=== PATIENT | female | born 1940 | race Caucasian/White ===

== ENCOUNTER 2017-08-30 19:45 | Inpatient (IN) | payer MEDICARE, OTHER ==
[2017-08-30] MEDS ORDERED: Albuterol/Ipratropium 3.0-0.5 MG/3 ML Neb Soln ONE (19:46)
[2017-08-30] MEDS ORDERED: Albuterol/Ipratropium 3.0-0.5 MG/3 ML Neb Soln NEB ONE (19:55)
--- NOTE | 2017-08-30 20:19 | EDM.PDOC ---
ED HPI GENERAL MEDICAL PROBLEM - General Chief Complaint: Respiratory Problem Stated Complaint: SOB Time Seen by Provider: 08/30/17 19:50 Source of Information: Reports: Patient, EMS, Family History Limitations: Reports: No Limitations - History of Present Illness INITIAL COMMENTS - FREE TEXT/NARRATIVE: Criselda is a 77 year old female with PMH of COPD, hypertension, hyperlipidemia, who presents to the ED via EMS with c/o difficultly breathing. She reports that around 5 pm she started feeling more and more short of breath. She reports she did do a nebulizer at 1745 without relief. Initially her daughter was going to bring her, but then she started to "panic more" and got more short of breath so EMS was called. She appears in respiratory distress with respirations > 40 at time of presentation. She reports she has had a productive cough occasionally the past few days, but otherwise has been feeling well. Does report she has extensive smoking history and she did have a couple cigarettes today. Denies any fever, chills, chest pain, dizziness, sinus congestion, confusion, abdominal pain, N/V/D, urinary symptoms. She does report she has felt more fatigued and had a decreased appetite the past few days. Family reports that she has been laying around all day not feeling well. Onset: Today Onset Date: 08/30/17 Onset Time: 17:00 Duration: Getting Worse Location: Reports: Chest Associated Symptoms: Reports: Cough, cough w sputum, Loss of Appetite, Shortness of Breath, Weakness. Denies: Confusion, Chest Pain, Diaphoresis, Fever/Chills, Headaches, Malaise, Nausea/Vomiting, Rash, Seizure, Syncope Treatments GENERAL PURCHASING AGENT: Reports: Other Medication(s) (nebulizers, xanax) - Related Data Allergies Allergy/AdvReac Type Severity Reaction Status Date / Time ciprofloxacin [From Cipro] Allergy Hives Verified 08/30/17 19:09 Sulfa (Sulfonamide Allergy Hives Verified 08/30/17 19:09 Antibiotics) Home Meds: Home Meds ALPRAZolam [Xanax] 0.5 mg PO TID PRN 06/06/13 [History] Aspirin 325 mg PO DAILY 06/06/13 [History] Simvastatin [Zocor] 40 mg PO DAILY 06/06/13 [History] amLODIPine [Norvasc] 5 mg PO DAILY 06/06/13 [History] Fluticasone/Salmeterol [Advair Diskus 250-50] 1 puff INH BID 04/08/16 [History] Albuterol [Ventolin HFA] 1 puff INH Q4H PRN 08/30/17 [History] Albuterol/Ipratropium [DuoNeb 3.0-0.5 MG/3 ML] 1 vial INH Q4H PRN 08/30/17 [ History] Calcium Carb & Citrate/Vit D3 [Calcium + D3 ER Tablet] 1 tab PO DAILY 08/30/17 [ History] Loratadine 10 mg PO DAILY PRN 08/30/17 [History] traMADol HCl [Tramadol HCl] 50 mg PO Q6H PRN 08/30/17 [History] Past Medical History HEENT History: Reports: Allergic Rhinitis, Sinusitis Cardiovascular History: Reports: High Cholesterol, Hypertension, Other (See Below) Other Cardiovascular History: carotid bruit Respiratory History: Reports: Bronchitis, Recurrent, COPD, SOB Psychiatric History: Reports: Anxiety - Past Surgical History HEENT Surgical History: Reports: Other (See Below) Social & Family History - Family History Family Medical History: Noncontributory ED ROS GENERAL - Review of Systems Review Of Systems: See Below Constitutional: Reports: Weakness, Fatigue, Decreased Appetite. Denies: Fever, Chills HEENT: Denies: Ear Pain, Rhinitis, Sinus Problem, Throat Pain, Vertigo, Vision Change Respiratory: Reports: Shortness of Breath, Wheezing, Cough, Sputum. Denies: Pleuritic Chest Pain, Hemoptysis Cardiovascular: Reports: Dyspnea on Exertion. Denies: Chest Pain, Blood Pressure Problem, Edema, Lightheadedness, Orthopnea, Palpitations, Syncope Endocrine: Reports: Fatigue GI/Abdominal: Reports: Decreased Appetite. Denies: Abdominal Pain, Constipation , Diarrhea, Nausea, Vomiting : Denies: Dysuria, Frequency, Urgency Musculoskeletal: Reports: No Symptoms Skin: Reports: No Symptoms Neurological: Reports: Weakness. Denies: Confusion, Dizziness, Headache, Numbness, Syncope, Tingling Psychiatric: Reports: Anxiety Hematologic/Lymphatic: Reports: No Symptoms Immunologic: Reports: Seasonal Allergy ED EXAM, GENERAL - Physical Exam Exam: See Below Exam Limited By: Respiratory Distress General Appearance: Alert, WD/WN, Moderate Distress Eye Exam: Bilateral Eye: EOMI, PERRL Nose: Normal Inspection, Normal Mucosa, No Blood. No: Nasal Flaring Throat/Mouth: Normal Inspection, Normal Lips, Normal Teeth, Normal Gums, Normal Oropharynx, Normal Voice, No Airway Compromise Head: Atraumatic, Normocephalic Neck: Normal Inspection, Supple, Non-Tender, Full Range of Motion Respiratory/Chest: No Accessory Muscle Use, Respiratory Distress, Decreased Breath Sounds, Wheezing, Accessory Muscle Use, Prolonged Expiration. No: Crackles, Rales, Rhonchi, Stridor, Retractions Cardiovascular: Normal Peripheral Pulses, No Edema, No Murmur, Tachycardia GI/Abdominal: Normal Bowel Sounds, Soft, Non-Tender, No Organomegaly, No Distention, No Abnormal Bruit, No Mass Extremities: Normal Inspection, Normal Range of Motion, Non-Tender, Normal Capillary Refill, No Pedal Edema Neurological: Alert, Oriented, CN II-XII Intact, Normal Cognition, Normal Gait, Normal Reflexes, No Motor/Sensory Deficits Psychiatric: Anxious Skin Exam: Warm, Dry, Intact, Normal Color, No Rash Lymphatic: No Adenopathy Course - Vital Signs Last Recorded V/S: Last Vital Signs Temp 96.6 F 08/31/17 03:52 Pulse 81 08/31/17 03:52 Resp 25 H 08/31/17 03:52 BP 118/50 L 08/31/17 03:52 Pulse Ox 98 08/31/17 03:52 - Orders/Labs/Meds Orders: Active Orders 24 hr Category Date Time Status Chest 2V [CR] Stat Exams 08/30/17 19:45 Taken Medication Orders Acetaminophen (Tylenol) 650 mg PO Q4H PRN PRN Reason: Pain (Mild 1-3)/fever Albuterol/Ipratropium (Duoneb 3.0-0.5 Mg/3 Ml) 3 ml NEB QIDRT [facility] Albuterol/Ipratropium (Duoneb 3.0-0.5 Mg/3 Ml) 3 ml NEB Q4H PRN PRN Reason: Dyspnea Last Admin: 08/30/17 22:47 Dose: 3 ml Alprazolam (Xanax) 0.5 mg PO TID PRN PRN Reason: Anxiety Amlodipine Besylate (Norvasc) 5 mg PO DAILY [facility] Aspirin (Aspirin) 325 mg PO DAILY [facility] Calcium Carbonate (Calcium Carbonate/Vitamin D 1250 Mg-200 Unit) 1 tab PO DAILY [facility] Ceftriaxone Sodium (Rocephin) 1 gm IVPUSH Q24H [facility] Enoxaparin Sodium (Lovenox) 40 mg SUBCUT Q24H [facility] Last Admin: 08/30/17 21:44 Dose: 40 mg Azithromycin 500 mg/ Sodium (Chloride) 250 mls @ 250 mls/hr IV Q24H [facility] Loratadine (Claritin) 10 mg PO DAILY PRN PRN Reason: Allergies Magnesium Hydroxide (Milk Of Magnesia) 30 ml PO Q12H PRN PRN Reason: Constipation Methylprednisolone Sodium Succinate (Solu-Medrol) 62.5 mg IVPUSH Q12H [facility] Last Admin: 08/30/17 21:43 Dose: 62.5 mg Mometasone Furoate/Formoterol Fumar (Dulera 200-5 Mcg) 2 puff IH BID [facility] Simvastatin (Zocor) 40 mg PO DAILY [facility] Temazepam (Restoril) 15 mg PO BEDTIME PRN PRN Reason: Sleep Last Admin: 08/30/17 22:45 Dose: 15 mg Tramadol HCl (Ultram) 50 mg PO Q6H PRN PRN Reason: Pain Labs: Laboratory Tests 08/30/17 08/30/17 08/30/17 Range/Units 19:57 19:57 19:57 WBC 16.9 H (5.0-10.0) 10^3/uL RBC 4.64 (4.00-5.50) 10^6/uL Hgb 14.5 (12.0-16.0) g/dL Hct 44.2 (37.0-47.0) % MCV 95.3 H (82.0-94.0) fL MCH 31.3 (27.0-32.0) pg MCHC 32.8 L (33.0-38.0) g/dL RDW Coeff of Ro 14.6 (11.0-15.0) % Plt Count 327 (150-400) 10^3/uL Add Manual Diff Yes Neutrophils % (Manual) 93 H (35-85) % Band Neutrophils % 2 (0-5) % Lymphocytes % (Manual) 4 L (21-55) % Monocytes % (Manual) 1 L (2-12) % Absolute Neutrophils 16.06 H (1.80-7.00) 10^3/uL Lymphocytes # (Manual) 0.68 L (1.00-4.80) 10^3/uL Monocytes # (Manual) 0.17 (0.00-0.80) 10^3/uL D-Dimer, Quantitative 0.86 H (0.00-0.50) Sodium 138 (136-145) mEq/L Potassium 4.9 (3.5-5.0) mEq/L Chloride 100 (98-106) mEq/L Carbon Dioxide 30 (21-32) mmol/L BUN 15 (7-18) mg/dL Creatinine 0.8 (0.6-1.0) mg/dL Est Cr Clr Drug Dosing 42.30 mL/min Estimated GFR (MDRD) > 60 (>=60) mL/min Glucose 129 H (75-99) mg/dL Calcium 8.8 (8.4-10.1) mg/dL Total Bilirubin 0.3 (0.0-1.0) mg/dL AST 25 (15-37) U/L ALT 31 (12-78) U/L Alkaline Phosphatase 81 (46-116) U/L Lactate Dehydrogenase 210 H (100-190) U/L Creatine Kinase 120 (21-215) U/L Troponin I < 0.017 (0.00-0.06) ng/mL C-Reactive Protein 0.3 (0.2-0.8) mg/dL NT-Pro-B Natriuret Pep 329 (0-1000) pg/mL Total Protein 7.4 (6.4-8.2) g/dL Albumin 3.4 (3.4-5.0) g/dL Meds: Medications Generic Name Dose Route Start Last Admin Trade Name Freq PRN Reason Stop Dose Admin Acetaminophen 650 mg 08/30/17 21:10 Tylenol PO Q4H PRN Pain (Mild 1-3)/fever Albuterol/Ipratropium 3 ml 08/31/17 08:00 Duoneb 3.0-0.5 Mg/3 Ml NEB QIDRT [facility] Albuterol/Ipratropium 3 ml 08/30/17 21:10 08/30/17 22:47 Duoneb 3.0-0.5 Mg/3 Ml NEB 3 ml Q4H PRN Administration Dyspnea Alprazolam 0.5 mg 08/30/17 21:10 Xanax PO TID PRN Anxiety Amlodipine Besylate 5 mg 08/31/17 08:00 Norvasc PO DAILY [facility] Aspirin 325 mg 08/31/17 08:00 Aspirin PO DAILY [facility] Calcium Carbonate 1 tab 08/31/17 08:00 Calcium Carbonate/Vitamin D 1250 Mg-200 Unit PO DAILY [facility] Ceftriaxone Sodium 1 gm 08/31/17 07:30 Rocephin IVPUSH Q24H [facility] Enoxaparin Sodium 40 mg 08/30/17 21:00 08/30/17 21:44 Lovenox SUBCUT 40 mg Q24H [facility] Administration Azithromycin 500 mg/ Sodium 250 mls @ 250 mls/hr 08/31/17 07:30 Chloride IV Q24H [facility] Loratadine 10 mg 08/30/17 21:10 Claritin PO DAILY PRN Allergies Magnesium Hydroxide 30 ml 08/30/17 21:10 Milk Of Magnesia PO Q12H PRN Constipation Methylprednisolone Sodium Succinate 62.5 mg 08/30/17 21:00 08/30/17 21:43 Solu-Medrol IVPUSH 62.5 mg Q12H [facility] Administration Mometasone Furoate/Formoterol Fumar 2 puff 08/31/17 08:00 Dulera 200-5 Mcg IH BID [facility] Simvastatin 40 mg 08/31/17 08:00 Zocor PO DAILY [facility] Temazepam 15 mg 08/30/17 21:10 08/30/17 22:45 Restoril PO 15 mg BEDTIME PRN Administration Sleep Tramadol HCl 50 mg 08/30/17 21:10 Ultram PO Q6H PRN Pain Discontinued Medications Generic Name Dose Route Start Last Admin Trade Name Freq PRN Reason Stop Dose Admin Albuterol/Ipratropium Confirm 08/30/17 19:46 08/30/17 20:09 Duoneb 3.0-0.5 Mg/3 Ml Administered 08/30/17 19:47 Not Given Dose 3 ml .ROUTE .STK-MED ONE Albuterol/Ipratropium 3 ml 08/30/17 19:55 08/30/17 19:55 Duoneb 3.0-0.5 Mg/3 Ml NEB 08/30/17 19:56 3 ml ONETIME ONE Administration Levofloxacin/Dextrose 500 mg/ 100 mls @ 100 mls/hr 08/30/17 21:00 08/30/17 21 :43 Premix IV 100 mls/hr Q24H [facility] Administration - Re-Assessments/Exams Free Text/Narrative Re-Assessment/Exam: Discussed labs, EKG, and CXR findings with patient and family. Patient is requiring oxygen to maintain O2 sat > 88%. WBC elevated to 16.9. D-Dimer slightly elevated to 0.86, will hold off on chest CTA at this time and reassess with Dr. Hall in am. All other labs stable. I do not see obvious infiltrate on CXR, awaiting final radiology report. We will admit for acute COPD exacerbation. IV Rocephin and azithromycin. IV solumedrol and Duonebs. Continue to monitor O2 sats overnight. Patient and family agreeable to plan. CXR shows COPD, no infiltrates, pleural effusions, or pulmonary edema. Departure - Departure Time of Disposition: 20:40 Disposition: Admitted As Inpatient 66 Condition: Fair Clinical Impression: COPD exacerbation, Respiratory disease - Discharge Information - Problem List & Annotations (1) COPD with acute exacerbation SNOMED Code(s): 223431707 Code(s): J44.1 - CHRONIC OBSTRUCTIVE PULMONARY DISEASE W (ACUTE) EXACERBATION Status: Acute Current Visit: Yes (2) Hypertension SNOMED Code(s): 89759179 Code(s): I10 - ESSENTIAL (PRIMARY) HYPERTENSION Status: Acute Current Visit: Yes Qualifiers: Hypertension type: essential hypertension Qualified Code(s): I10 - Essential (primary) hypertension (3) Anxiety SNOMED Code(s): 44552171 Code(s): F41.9 - ANXIETY DISORDER, UNSPECIFIED Status: Chronic Current Visit: Yes - Problem List Review Problem List Initiated/Reviewed/Updated: Yes - My Orders Last 24 Hours: My Active Orders 08/30/17 19:45 Chest 2V [CR] Stat - Assessment/Plan Admission H&P: Please use this note as an admission H&P Last 24 Hours: My Active Orders 08/30/17 19:45 Chest 2V [CR] Stat Assessment:: COPD with acute exacerbation Plan: Admit to acute with telemetry to Dr. Hall IV antibiotics, steroids, Duonebs
[2017-08-30 20:22] LABS: CHLORIDE,CL 100 mEq/L (98-106); SODIUM,NA 138 mEq/L (136-145)
[2017-08-30] MEDS ORDERED: Enoxaparin 40 MG/0.4 ML Syringe SUBCUT SCH (21:00)
[2017-08-30] MEDS ORDERED: methylPREDNISolone Sodium Succinate 125 MG/2 ML SDV IVPUSH SCH (21:00)
[2017-08-30] MEDS ORDERED: Levofloxacin/Dextrose 5%-Water 500 MG in Premix Bag 1 BAG IV SCH (21:00)
[2017-08-30] MEDS ORDERED: Acetaminophen 325 MG Tab PO PRN (21:10)
[2017-08-30] MEDS ORDERED: ALPRAZolam 0.25 MG Tab PO PRN (21:10)
[2017-08-30] MEDS ORDERED: Temazepam 15 MG Cap PO PRN (21:10)
[2017-08-30] MEDS ORDERED: Albuterol/Ipratropium 3.0-0.5 MG/3 ML Neb Soln NEB PRN (21:10)
[2017-08-30] MEDS ORDERED: traMADol 50 MG Tab PO PRN (21:10)
[2017-08-30] MEDS ORDERED: Magnesium Hydroxide 400 MG/5 ML Susp 30 ML Cup PO PRN (21:10)
[2017-08-30] MEDS ORDERED: Loratadine 10 MG Tab PO PRN (21:10)
[2017-08-31 07:35] LABS: CHLORIDE,CL 101 mEq/L (98-106); SODIUM,NA 138 mEq/L (136-145)
[2017-08-31] MEDS: Albuterol/Ipratropium 3.0-0.5 MG/3 ML Neb Soln NEB SCH ×2 (07:47→11:40)
[2017-08-31] MEDS ORDERED: amLODIPine 2.5 MG Tab PO SCH (08:00)
[2017-08-31] MEDS ORDERED: Formoterol/Mometasone 200-5 MCG 8.8 GM Inhaler IH SCH (08:00)
[2017-08-31] MEDS ORDERED: Aspirin 325 MG Tab PO SCH (08:00)
[2017-08-31] MEDS ORDERED: Simvastatin 40 MG Tab PO SCH (08:00)
[2017-08-31] MEDS ORDERED: Calcium Carbonate/Vitamin D3 1250 MG-200 Unit Tab PO SCH (08:00)
[2017-08-31] MEDS ORDERED: cefTRIAXone 1 GM Vial IVPUSH SCH ×2 (08:00→09:00)
[2017-08-31] MEDS ORDERED: methylPREDNISolone Sodium Succinate 125 MG/2 ML SDV IVPUSH SCH (09:00)
[2017-08-31] MEDS ORDERED: Azithromycin 500 MG in Sodium Chloride 0.9% 250 ML IV SCH (09:00)
--- NOTE | 2017-08-31 09:21 | PCM.DCSUM1 ---
Discharge Summary - Hospital Course HPI Initial Comments: Criselda is a 77 year old female who was admitted to the hospital 08/30/2017 with COPD exacerbation. She presented to the ED in acute respiratory distress with > 40 breaths per minute. O2 sats were initially in the low 80s. CXR was negative for infiltrates. WBC was elevated to 16.9. Patient was admitted acute. She drastically improved overnight. At time of presentation she had audible wheezing throughout all lung amado. She was started on IV antibiotics, steroids , and nebulizers. On the morning following admission, patient reported she was feeling much better. She was no longer short of breath. She wished to discharge home. Her lung sounds were clear, but diminished. She has been afebrile. WBC improved to 11.1. D-dimer was elevated to 0.86. CRP 4.8. Patient will be discharged home on doxycycline, prednisone, and duonebs. She will also be discharged home on nicotine patches. She reports she wishes to quit smoking. Assessment for home O2 was completed and patient requiring oxygen for discharge. She is not able to maintain oxygen saturations > 88% on RA with activity given her significant COPD. She is advised to follow up with Cheryl OWENS in 5 days for hospital recheck. - Discharge Data Discharge Date: 08/31/17 Discharge Disposition: Home, Self-Care 01 Condition: Poor - Discharge Diagnosis/Problem(s) (1) COPD with acute exacerbation SNOMED Code(s): 612904944 ICD Code: J44.1 - CHRONIC OBSTRUCTIVE PULMONARY DISEASE W (ACUTE) EXACERBATION Status: Acute (2) Hypertension SNOMED Code(s): 78598009 ICD Code: I10 - ESSENTIAL (PRIMARY) HYPERTENSION Status: Acute Qualifiers: Hypertension type: essential hypertension Qualified Code(s): I10 - Essential (primary) hypertension (3) Anxiety SNOMED Code(s): 30458473 ICD Code: F41.9 - ANXIETY DISORDER, UNSPECIFIED Status: Chronic - Patient Instructions Diet: Usual Diet as Tolerated Activity: As Tolerated Notify Provider of: Fever, Increased Pain, Swelling and Redness, Drainage, Nausea and/or Vomiting - Discharge Plan Prescriptions/Med Rec: Albuterol/Ipratropium [DuoNeb 3.0-0.5 MG/3 ML] 1 vial INH Q4H PRN #30 neb PRN Reason: Dyspnea Doxycycline [Vibramycin] 100 mg PO DAILY 7 Days #7 tab Nicotine [Habitrol] 14 mg TRDERM Q24H #30 patch predniSONE [Prednisone] 40 mg PO DAILY 5 Days #10 tablet Home Medications: Home Meds ALPRAZolam [Xanax] 0.5 mg PO TID PRN 06/06/13 [History] Aspirin 325 mg PO DAILY 06/06/13 [History] Simvastatin [Zocor] 40 mg PO DAILY 06/06/13 [History] amLODIPine [Norvasc] 5 mg PO DAILY 06/06/13 [History] Fluticasone/Salmeterol [Advair Diskus 250-50] 1 puff INH BID 04/08/16 [History] Albuterol [Ventolin HFA] 1 puff INH Q4H PRN 08/30/17 [History] Calcium Carb & Citrate/Vit D3 [Calcium + D3 ER Tablet] 1 tab PO DAILY 08/30/17 [ History] Loratadine 10 mg PO DAILY PRN 08/30/17 [History] traMADol HCl [Tramadol HCl] 50 mg PO Q6H PRN 08/30/17 [History] Albuterol/Ipratropium [DuoNeb 3.0-0.5 MG/3 ML] 1 vial INH Q4H PRN #30 neb [Rx] Doxycycline [Vibramycin] 100 mg PO DAILY 7 Days #7 tab 08/31/17 [Rx] Nicotine [Habitrol] 14 mg TRDERM Q24H #30 patch 08/31/17 [Rx] predniSONE [Prednisone] 40 mg PO DAILY 5 Days #10 tablet 08/31/17 [Rx] Patient Handouts: Chronic Obstructive Pulmonary Disease Exacerbation, Easy-to- Read Forms: ED Department Discharge Referrals: Nadine Bob PA [Primary Care Provider] - - General Info Date of Service: 08/31/17 Admission Dx/Problem (Free Text: COPD Exacerbation - Patient Data Vitals - Most Recent: Last Vital Signs Temp 97.2 F 08/31/17 07:32 Pulse 81 08/31/17 07:32 Resp 24 H 08/31/17 07:32 BP 133/48 L 08/31/17 07:43 Pulse Ox 94 L 08/31/17 07:32 Weight - Most Recent: 122 lb Lab Results - Last 24 hrs: Laboratory Results - last 24 hr 05/24/18 05/24/18 05/24/18 Range/Units 19:57 19:57 19:57 WBC 16.9 H (5.0-10.0) 10^3/uL RBC 4.64 (4.00-5.50) 10^6/uL Hgb 14.5 (12.0-16.0) g/dL Hct 44.2 (37.0-47.0) % MCV 95.3 H (82.0-94.0) fL MCH 31.3 (27.0-32.0) pg MCHC 32.8 L (33.0-38.0) g/dL RDW Coeff of Ro 14.6 (11.0-15.0) % Plt Count 327 (150-400) 10^3/uL Add Manual Diff Yes Neutrophils % (Manual) 93 H (35-85) % Band Neutrophils % 2 (0-5) % Lymphocytes % (Manual) 4 L (21-55) % Monocytes % (Manual) 1 L (2-12) % Absolute Neutrophils 16.06 H (1.80-7.00) 10^3/uL Lymphocytes # (Manual) 0.68 L (1.00-4.80) 10^3/uL Monocytes # (Manual) 0.17 (0.00-0.80) 10^3/uL D-Dimer, Quantitative 0.86 H (0.00-0.50) Sodium 138 (136-145) mEq/L Potassium 4.9 (3.5-5.0) mEq/L Chloride 100 (98-106) mEq/L Carbon Dioxide 30 (21-32) mmol/L BUN 15 (7-18) mg/dL Creatinine 0.8 (0.6-1.0) mg/dL Est Cr Clr Drug Dosing 42.30 mL/min Estimated GFR (MDRD) > 60 (>=60) mL/min Glucose 129 H (75-99) mg/dL Calcium 8.8 (8.4-10.1) mg/dL Total Bilirubin 0.3 (0.0-1.0) mg/dL AST 25 (15-37) U/L ALT 31 (12-78) U/L Alkaline Phosphatase 81 (46-116) U/L Lactate Dehydrogenase 210 H (100-190) U/L Creatine Kinase 120 (21-215) U/L Troponin I < 0.017 (0.00-0.06) ng/mL C-Reactive Protein 0.3 (0.2-0.8) mg/dL NT-Pro-B Natriuret Pep 329 (0-1000) pg/mL Total Protein 7.4 (6.4-8.2) g/dL Albumin 3.4 (3.4-5.0) g/dL Urine Color (YELLOW) Urine Appearance (CLEAR) Urine pH (4.5-8.0) Ur Specific [place] (1.003-1.020) Urine Protein (NEGATIVE) mg/dL Urine Glucose (UA) (NEGATIVE) mg/dL Urine Ketones (NEGATIVE) mg/dL Urine Occult Blood (NEGATIVE) Urine Nitrite (NEGATIVE) Urine Bilirubin (NEGATIVE) Urine Urobilinogen (0.2-1.0) EU/dL Ur Leukocyte Esterase (NEGATIVE) Urine RBC (0-5) /HPF Urine WBC (0-5) /HPF Urine Mucus (NOT SEEN) /HPF 08/30/17 08/31/17 08/31/17 Range/Units 21:10 07:00 07:00 WBC 11.1 H (5.0-10.0) 10^3/uL RBC 4.39 (4.00-5.50) 10^6/uL Hgb 13.6 (12.0-16.0) g/dL Hct 41.5 (37.0-47.0) % MCV 94.5 H (82.0-94.0) fL MCH 31.0 (27.0-32.0) pg MCHC 32.8 L (33.0-38.0) g/dL RDW Coeff of Ro 14.3 (11.0-15.0) % Plt Count 331 (150-400) 10^3/uL Add Manual Diff Yes Neutrophils % (Manual) 93 H (35-85) % Band Neutrophils % 3 (0-5) % Lymphocytes % (Manual) 4 L (21-55) % Monocytes % (Manual) (2-12) % Absolute Neutrophils 10.66 H (1.80-7.00) 10^3/uL Lymphocytes # (Manual) 0.44 L (1.00-4.80) 10^3/uL Monocytes # (Manual) (0.00-0.80) 10^3/uL D-Dimer, Quantitative (0.00-0.50) Sodium 138 (136-145) mEq/L Potassium 4.8 (3.5-5.0) mEq/L Chloride 101 (98-106) mEq/L Carbon Dioxide 27 (21-32) mmol/L BUN 16 (7-18) mg/dL Creatinine 0.8 (0.6-1.0) mg/dL Est Cr Clr Drug Dosing 42.30 mL/min Estimated GFR (MDRD) > 60 (>=60) mL/min Glucose 168 H D (75-99) mg/dL Calcium 8.7 (8.4-10.1) mg/dL Total Bilirubin (0.0-1.0) mg/dL AST (15-37) U/L ALT (12-78) U/L Alkaline Phosphatase (46-116) U/L Lactate Dehydrogenase (100-190) U/L Creatine Kinase (21-215) U/L Troponin I (0.00-0.06) ng/mL C-Reactive Protein 4.8 H (0.2-0.8) mg/dL NT-Pro-B Natriuret Pep (0-1000) pg/mL Total Protein (6.4-8.2) g/dL Albumin (3.4-5.0) g/dL Urine Color Yellow (YELLOW) Urine Appearance Clear (CLEAR) Urine pH 5.0 (4.5-8.0) Ur Specific [place] 1.025 H (1.003-1.020) Urine Protein Negative (NEGATIVE) mg/dL Urine Glucose (UA) Negative (NEGATIVE) mg/dL Urine Ketones Negative (NEGATIVE) mg/dL Urine Occult Blood Negative (NEGATIVE) Urine Nitrite Negative (NEGATIVE) Urine Bilirubin Negative (NEGATIVE) Urine Urobilinogen 0.2 (0.2-1.0) EU/dL Ur Leukocyte Esterase Negative (NEGATIVE) Urine RBC Not seen (0-5) /HPF Urine WBC 0-5 (0-5) /HPF Urine Mucus Occasional H (NOT SEEN) /HPF Med Orders - Current: Current Medications Acetaminophen (Tylenol) 650 mg PO Q4H PRN PRN Reason: Pain (Mild 1-3)/fever Albuterol/Ipratropium (Duoneb 3.0-0.5 Mg/3 Ml) 3 ml NEB QIDRT [facility] Last Admin: 08/31/17 07:47 Dose: 3 ml Albuterol/Ipratropium (Duoneb 3.0-0.5 Mg/3 Ml) 3 ml NEB Q4H PRN PRN Reason: Dyspnea Last Admin: 08/30/17 22:47 Dose: 3 ml Alprazolam (Xanax) 0.5 mg PO TID PRN PRN Reason: Anxiety Amlodipine Besylate (Norvasc) 5 mg PO DAILY [facility] Last Admin: 08/31/17 07:43 Dose: 5 mg Aspirin (Aspirin) 325 mg PO DAILY [facility] Last Admin: 08/31/17 07:43 Dose: 325 mg Calcium Carbonate (Calcium Carbonate/Vitamin D 1250 Mg-200 Unit) 1 tab PO DAILY [facility] Last Admin: 08/31/17 07:43 Dose: 1 tab Ceftriaxone Sodium (Rocephin) 1 gm IVPUSH DAILY@0800 [facility] Last Admin: 08/31/17 08:52 Dose: 1 gm Enoxaparin Sodium (Lovenox) 40 mg SUBCUT Q24H [facility] Last Admin: 08/30/17 21:44 Dose: 40 mg Azithromycin 500 mg/ Sodium (Chloride) 250 mls @ 250 mls/hr IV DAILY [facility] Last Admin: 08/31/17 09:00 Dose: 250 mls/hr Loratadine (Claritin) 10 mg PO DAILY PRN PRN Reason: Allergies Magnesium Hydroxide (Milk Of Magnesia) 30 ml PO Q12H PRN PRN Reason: Constipation Methylprednisolone Sodium Succinate (Solu-Medrol) 62.5 mg IVPUSH BID@0800,1600 [facility] Last Admin: 08/31/17 08:09 Dose: 62.5 mg Mometasone Furoate/Formoterol Fumar (Dulera 200-5 Mcg) 2 puff IH BID [facility] Last Admin: 08/31/17 07:55 Dose: 2 puff Simvastatin (Zocor) 40 mg PO DAILY [facility] Last Admin: 08/31/17 07:44 Dose: 40 mg Temazepam (Restoril) 15 mg PO BEDTIME PRN PRN Reason: Sleep Last Admin: 08/30/17 22:45 Dose: 15 mg Tramadol HCl (Ultram) 50 mg PO Q6H PRN PRN Reason: Pain Discontinued Medications Albuterol/Ipratropium (Duoneb 3.0-0.5 Mg/3 Ml) Confirm Administered Dose 3 ml .ROUTE .STK-MED ONE Stop: 08/30/17 19:47 Last Admin: 08/30/17 20:09 Dose: Not Given Albuterol/Ipratropium (Duoneb 3.0-0.5 Mg/3 Ml) 3 ml NEB ONETIME ONE Stop: 08/30/17 19:56 Last Admin: 08/30/17 19:55 Dose: 3 ml Ceftriaxone Sodium (Rocephin) 1 gm IVPUSH DAILY [facility] Last Admin: 08/31/17 09:03 Dose: Not Given Levofloxacin/Dextrose 500 mg/ (Premix) 100 mls @ 100 mls/hr IV Q24H [facility] Last Admin: 08/30/17 21:43 Dose: 100 mls/hr Methylprednisolone Sodium Succinate (Solu-Medrol) 62.5 mg IVPUSH Q12H [facility] Last Admin: 08/30/17 21:43 Dose: 62.5 mg
[2017-08-31 11:50] VITALS: BP 135/48
== END 2017-08-31 12:25 | disposition home or self-care (01) | DRG 190 ==
LOC: CC.ED 19:45 → CC.MS 20:42 → UNDOADMIN 20:45 → CC.MS 20:45
PROVIDERS: ADMIT Nurse Practitioner Family; ATTEND Family Medicine
DX: J44.1 Chronic obstructive pulmonary disease with (acute) exacerbation (principal); J96.21 Acute and chronic respiratory failure with hypoxia; I10 Essential (primary) hypertension; E78.5 Hyperlipidemia, unspecified; F17.210 Nicotine dependence, cigarettes, uncomplicated; J30.9 Allergic rhinitis, unspecified; J32.9 Chronic sinusitis, unspecified; F41.9 Anxiety disorder, unspecified; Z88.1 Allergy status to other antibiotic agents; Z88.2 Allergy status to sulfonamides; Z79.82 Long term (current) use of aspirin; Z79.899 Other long term (current) drug therapy; R06.2 Wheezing; R06.00 Dyspnea, unspecified; R05 Cough; R53.83 Other fatigue; R09.3 Abnormal sputum; R53.1 Weakness; R06.02 Shortness of breath
CPT/HCPCS: 36415; 71046; 80048; 80053; 81001; 82550; 83615; 83880; 84484; 85025; 85379; 86140; 87205; 93005; 94640; 99285; A9270-GY; J0456; J0696; J1650; J1956; J2930; J7050

== ENCOUNTER 2018-02-15 08:28 | Inpatient (IN) | payer MEDICARE, OTHER ==
[2018-02-15] MEDS ORDERED: Albuterol/Ipratropium 3.0-0.5 MG/3 ML Neb Soln NEB ONE ×2 (08:29→09:01)
[2018-02-15] MEDS ORDERED: LORazepam 2 MG/ML Syringe IM ONE (08:42)
[2018-02-15] MEDS ORDERED: LORazepam 2 MG/ML Syringe IVPUSH ONE (08:42)
[2018-02-15] MEDS ORDERED: methylPREDNISolone Sodium Succinate 125 MG/2 ML SDV IVPUSH ONE (08:45)
[2018-02-15 08:51] VITALS: BP 121/66
[2018-02-15] MEDS ORDERED: Albuterol/Ipratropium 3.0-0.5 MG/3 ML Neb Soln ONE (08:52)
--- NOTE | 2018-02-15 09:11 | EDM.PDOC ---
ED HPI GENERAL MEDICAL PROBLEM - General Chief Complaint: Respiratory Problem Stated Complaint: Resp distress Time Seen by Provider: 02/15/18 08:35 Source of Information: Reports: Patient, EMS, Family History Limitations: Reports: Respiratory Distress - History of Present Illness INITIAL COMMENTS - FREE TEXT/NARRATIVE: Pt brought in by [facility] with complaints of respiratory distress. She is currently getting duoneb in the ER and sats are maintaining in the low 90's. She has not been feeling well since last evening. Has progressively become more SOB and much more anxious. She has recently been smoking more as she was upset when her son left after a recent visit. Usually smokes about a pack every 3 days but recently has been more lie a pack a day or more. Has not had fever that she knows of. Does feel cool and clammy currently. Denies any chest pain currently. cough is congested and moist. No edema noted. Pt is very SOB with talking and at rest. She is alert and able to carry on conversation for short periods and does answer yes and no. She did admit to some chest pain that lasted for short time last evening and again this AM. Pt was asked about code level and she did not want to have CPR or intubation. SHe was agreeable to meds and treatments if they would help. Onset: Gradual Location: Reports: Chest Improves with: Reports: Other (oxygen) Worsens with: Reports: Movement Associated Symptoms: Reports: Chest Pain, Shortness of Breath Treatments PATIENT CARE: Reports: EKG, Oxygen - Related Data Allergies Allergy/AdvReac Type Severity Reaction Status Date / Time ciprofloxacin [From Cipro] Allergy Hives Verified 02/15/18 10:37 Sulfa (Sulfonamide Allergy Hives Verified 02/15/18 10:37 Antibiotics) Home Meds: Home Meds ALPRAZolam [Xanax] 0.5 mg PO BID 06/06/13 [History] Aspirin 325 mg PO DAILY 06/06/13 [History] Simvastatin [Zocor] 40 mg PO DAILY 06/06/13 [History] amLODIPine [Norvasc] 5 mg PO DAILY 06/06/13 [History] Fluticasone/Salmeterol [Advair Diskus 250-50] 1 puff INH BID 04/08/16 [History] Albuterol [Ventolin HFA] 1 puff INH Q4H PRN 08/30/17 [History] Calcium Carb & Citrate/Vit D3 [Calcium + D3 ER Tablet] 1 tab PO DAILY 08/30/17 [ History] Loratadine 10 mg PO DAILY PRN 08/30/17 [History] traMADol HCl [Tramadol HCl] 50 mg PO Q6H PRN 08/30/17 [History] Albuterol/Ipratropium [DuoNeb 3.0-0.5 MG/3 ML] 1 vial INH Q4H PRN #30 neb [Rx] Past Medical History HEENT History: Reports: Allergic Rhinitis, Sinusitis Cardiovascular History: Reports: High Cholesterol, Hypertension, Other (See Below) Other Cardiovascular History: carotid bruit Respiratory History: Reports: Bronchitis, Recurrent, COPD, SOB Musculoskeletal History: Reports: Arthritis, Fracture Psychiatric History: Reports: Anxiety - Past Surgical History HEENT Surgical History: Reports: Other (See Below) Social & Family History - Family History Family Medical History: Noncontributory - Tobacco Use Smoking Status *Q: Current Every Day Smoker - Living Situation & Occupation Living situation: Reports: , Alone Occupation: Retired ED ROS GENERAL - Review of Systems Review Of Systems: See Below Constitutional: Reports: Weakness. Denies: Fever, Chills HEENT: Reports: No Symptoms Respiratory: Reports: Shortness of Breath, Wheezing, Cough Cardiovascular: Reports: Chest Pain, Dyspnea on Exertion. Denies: Edema GI/Abdominal: Reports: No Symptoms Musculoskeletal: Reports: No Symptoms Skin: Denies: Rash Neurological: Reports: Trouble Speaking (due to severe SOB), Difficulty Walking (due to severe SOB) Psychiatric: Reports: Anxiety (Has history of severe anxiety that she takes meds for. Admits that she is very anxious and is scared.). Denies: Confusion ED EXAM, GENERAL - Physical Exam Exam: See Below Exam Limited By: Respiratory Distress General Appearance: Alert, Anxious, Severe Distress Ears: Normal External Exam, Normal Canal, Normal TMs Nose: Normal Inspection Throat/Mouth: Normal Oropharynx Head: Atraumatic Neck: Normal Inspection, Supple Respiratory/Chest: Respiratory Distress, Decreased Breath Sounds (lung sounds very decreased until after duoneb. They did improve slightly after duoneb.), Wheezing, Accessory Muscle Use (Is struggling to breathe initially. Was given multiple duonebs which did help her breathing and she was able to breathe easier and her sats did come up to the 90's), Retractions Cardiovascular: No Edema, Tachycardia GI/Abdominal: Normal Bowel Sounds Extremities: No Pedal Edema Neurological: Alert Psychiatric: Anxious Skin Exam: Cool (and clammy initially. Did improve after initial duonebs were given.) Course - Vital Signs Last Recorded V/S: Last Vital Signs Temp 96.4 F 02/15/18 08:39 Pulse 113 H 02/15/18 08:39 Resp 82 H 02/15/18 08:39 BP 121/66 02/15/18 08:39 Pulse Ox 6 L 02/15/18 08:39 - Orders/Labs/Meds Orders: Active Orders 24 hr Category Date Time Status RT Aerosol Therapy [RC] ASDIRECTED Care 02/15/18 09:00 Active RT Aerosol Therapy [RC] ASDIRECTED Care 02/15/18 09:01 Active Chest 1V Frontal [CR] Stat Exams 02/15/18 08:47 Taken Morphine Med 02/15/18 10:28 Active 2 mg IVPUSH Q1H PRN EKG 12 Lead [EK] Stat Ther 02/15/18 08:45 Ordered Medication Orders Morphine Sulfate (Morphine) 2 mg IVPUSH Q1H PRN PRN Reason: Pain Last Admin: 02/15/18 14:44 Dose: 2 mg Labs: Laboratory Tests 02/15/18 02/15/18 Range/Units 08:56 08:56 WBC 11.4 H (5.0-10.0) 10^3/uL RBC 3.87 L (4.00-5.50) 10^6/uL Hgb 12.2 (12.0-16.0) g/dL Hct 38.2 (37.0-47.0) % MCV 98.7 H (82.0-94.0) fL MCH 31.5 (27.0-32.0) pg MCHC 31.9 L (33.0-38.0) g/dL RDW Coeff of Ro 14.0 (11.0-15.0) % Plt Count 354 (150-400) 10^3/uL Neut % (Auto) 67.2 (35-85) % Lymph % (Auto) 25.3 (10-55) % [place] % (Auto) 6.0 (0-16) % Eos % (Auto) 1.2 (0-5) % Baso % (Auto) 0.3 (0-3) % Neut # (Auto) 7.68 H (1.80-7.00) 10^3/uL Lymph # (Auto) 2.89 (1.00-4.80) 10^3/uL [place] # (Auto) 0.68 (0.00-0.80) 10^3/uL Eos # (Auto) 0.14 (0.00-0.45) 10^3/uL Baso # (Auto) 0.03 10^3/uL Sodium 137 (136-145) mEq/L Potassium 4.7 (3.5-5.0) mEq/L Chloride 102 (98-106) mEq/L Carbon Dioxide 25 (21-32) mmol/L BUN 18 (7-18) mg/dL Creatinine 1.3 H D (0.6-1.0) mg/dL Est Cr Clr Drug Dosing 26.03 mL/min Estimated GFR (MDRD) 40 L (>=60) mL/min Glucose 257 H D (75-99) mg/dL Calcium 9.0 (8.4-10.1) mg/dL Total Bilirubin 0.3 (0.0-1.0) mg/dL AST 193 H (15-37) U/L ALT 104 H (12-78) U/L Alkaline Phosphatase 69 (46-116) U/L Lactate Dehydrogenase 424 H (100-190) U/L Creatine Kinase 1087 H (21-215) U/L Troponin I 12.873 H* (0.00-0.06) ng/mL C-Reactive Protein < 0.2 L (0.2-0.8) mg/dL NT-Pro-B Natriuret Pep 5705 H (0-1000) pg/mL Total Protein 7.2 (6.4-8.2) g/dL Albumin 3.5 (3.4-5.0) g/dL Meds: Medications Generic Name Dose Route Start Last Admin Trade Name Freq PRN Reason Stop Dose Admin Morphine Sulfate 2 mg 02/15/18 10:28 02/15/18 14:44 Morphine IVPUSH 2 mg Q1H PRN Administration Pain Discontinued Medications Generic Name Dose Route Start Last Admin Trade Name Freq PRN Reason Stop Dose Admin Albuterol/Ipratropium 6 ml 02/15/18 08:29 02/15/18 08:30 Duoneb 3.0-0.5 Mg/3 Ml NEB 02/15/18 08:30 6 ml ONETIME ONE Administration Albuterol/Ipratropium 3 ml 02/15/18 09:01 02/15/18 09:10 Duoneb 3.0-0.5 Mg/3 Ml NEB 02/15/18 09:02 3 ml ONETIME ONE Administration Albuterol/Ipratropium Confirm 02/15/18 08:52 02/15/18 14:43 Duoneb 3.0-0.5 Mg/3 Ml Administered 02/15/18 08:53 Not Given Dose 3 ml .ROUTE .STK-MED ONE Lorazepam 1 mg 02/15/18 08:42 02/15/18 08:45 Ativan IVPUSH 02/15/18 08:43 1 mg ONETIME ONE Administration Methylprednisolone Sodium Succinate 125 mg 02/15/18 08:45 02/15/18 08:45 Solu-Medrol IVPUSH 02/15/18 08:46 125 mg NOW ONE Administration - Re-Assessments/Exams Free Text/Narrative Re-Assessment/Exam: 02/15/18 09:10 Pt became less responsive and family changed code level to 3. They do not want her to be transferred. They would like her to be kept comfortable. Labs of elevated cardiac enzymes and ProBNP discussed with family along with her advanced COPD discussed. Pt will open eyes at times when talked to. Heart rate tachy. Pt will remain extended ER and paliative care due to massive UT and comorbidities. Will move to room where family can be present with her and comfort cares only will be done as per family wishes. Departure - Departure Time of Disposition: 14:30 Disposition: Admitted As Inpatient 66 Condition: Critical Clinical Impression: Palliative care status, Anxiety AMI (acute myocardial infarction) Qualifiers: Myocardial infarction type: non-ST elevation myocardial infarction Qualified Code(s): I21.4 - Non-ST elevation (NSTEMI) myocardial infarction CHF (congestive heart failure) Qualifiers: Heart failure type: unspecified Heart failure chronicity: acute Qualified Code( s): I50.9 - Heart failure, unspecified COPD (chronic obstructive pulmonary disease) Qualifiers: COPD type: unspecified COPD Qualified Code(s): J44.9 - Chronic obstructive pulmonary disease, unspecified - Discharge Information *PRESCRIPTION DRUG MONITORING PROGRAM REVIEWED*: Not Applicable *COPY OF PRESCRIPTION DRUG MONITORING REPORT IN PATIENT MILDRED: Not Applicable Referrals: PCP,Unknown [Primary Care Provider] - Forms: ED Department Discharge - Problem List & Annotations (1) AMI (acute myocardial infarction) SNOMED Code(s): 80206878 Code(s): I21.9 - ACUTE MYOCARDIAL INFARCTION, UNSPECIFIED Status: Acute Priority: High Qualifiers: Myocardial infarction type: non-ST elevation myocardial infarction Qualified Code(s): I21.4 - Non-ST elevation (NSTEMI) myocardial infarction (2) CHF (congestive heart failure) SNOMED Code(s): 48934034 Code(s): I50.9 - HEART FAILURE, UNSPECIFIED Status: Acute Priority: High Qualifiers: Heart failure type: unspecified Heart failure chronicity: acute Qualified Code(s): I50.9 - Heart failure, unspecified (3) Anxiety SNOMED Code(s): 31496727 Code(s): F41.9 - ANXIETY DISORDER, UNSPECIFIED Status: Chronic Priority: High (4) Palliative care status SNOMED Code(s): 321744221 Code(s): Z51.5 - ENCOUNTER FOR PALLIATIVE CARE Status: Acute Priority: High (5) COPD with acute exacerbation SNOMED Code(s): 724305010 Code(s): J44.1 - CHRONIC OBSTRUCTIVE PULMONARY DISEASE W (ACUTE) EXACERBATION Status: Acute Priority: Medium - Problem List Review Problem List Initiated/Reviewed/Updated: Yes - My Orders Last 24 Hours: My Active Orders 02/15/18 08:45 EKG 12 Lead [EK] Stat 02/15/18 08:47 Chest 1V Frontal [CR] Stat 02/15/18 09:00 RT Aerosol Therapy [RC] ASDIRECTED 02/15/18 09:01 RT Aerosol Therapy [RC] ASDIRECTED 02/15/18 10:28 Morphine 2 mg IVPUSH Q1H PRN - Assessment/Plan Admission H&P: Please use this note as an admission H&P Last 24 Hours: My Active Orders 02/15/18 08:45 EKG 12 Lead [EK] Stat 02/15/18 08:47 Chest 1V Frontal [CR] Stat 02/15/18 09:00 RT Aerosol Therapy [RC] ASDIRECTED 02/15/18 09:01 RT Aerosol Therapy [RC] ASDIRECTED 02/15/18 10:28 Morphine 2 mg IVPUSH Q1H PRN Plan: Will be admitted for palliative care with Morphine to help keep comfortable
[2018-02-15 09:29] LABS: CHLORIDE,CL 102 mEq/L (98-106); SODIUM,NA 137 mEq/L (136-145)
[2018-02-15] MEDS: Morphine 2 MG/ML Syringe IVPUSH PRN ×2 (14:44→16:12)
[2018-02-15] MEDS ORDERED: Albuterol/Ipratropium 3.0-0.5 MG/3 ML Neb Soln INH PRN (15:25)
[2018-02-15] MEDS ORDERED: Morphine 2 MG/ML Syringe IVPUSH PRN (15:25)
--- NOTE | 2018-02-22 07:27 | PCM.DCSUM1 ---
Discharge Summary - Hospital Course HPI Initial Comments: 02/15/18 Pt presented to the ER this AM with respiratory distress and was diagnosed with AMI. Pt did not want any treatment and became unresponsive shortly after arriving here. Family did not want her transferred and she was made a no code. She remained on oxygen and was given morphine for comfort cares. Diagnosis: Stroke: No - Discharge Data Discharge Date: 02/15/18 Discharge Disposition: 20 Condition: Serious - Discharge Diagnosis/Problem(s) (1) AMI (acute myocardial infarction) SNOMED Code(s): 91137972 ICD Code: I21.9 - ACUTE MYOCARDIAL INFARCTION, UNSPECIFIED Status: Acute Priority: High Qualifiers: Myocardial infarction type: non-ST elevation myocardial infarction Qualified Code(s): I21.4 - Non-ST elevation (NSTEMI) myocardial infarction (2) CHF (congestive heart failure) SNOMED Code(s): 35360567 ICD Code: I50.9 - HEART FAILURE, UNSPECIFIED Status: Acute Priority: High Qualifiers: Heart failure type: unspecified Heart failure chronicity: acute Qualified Code(s): I50.9 - Heart failure, unspecified (3) Anxiety SNOMED Code(s): 26653309 ICD Code: F41.9 - ANXIETY DISORDER, UNSPECIFIED Status: Chronic Priority : High (4) Palliative care status SNOMED Code(s): 644432750 ICD Code: Z51.5 - ENCOUNTER FOR PALLIATIVE CARE Status: Acute Priority: High (5) COPD with acute exacerbation SNOMED Code(s): 064949505 ICD Code: J44.1 - CHRONIC OBSTRUCTIVE PULMONARY DISEASE W (ACUTE) EXACERBATION Status: Acute Priority: Medium - Patient Summary/Data Hospital Course: 02/15/18 Pt declined over the course of the day with her family wanting comfort cares only. She did at 1725 with her family present. - Discharge Plan *PRESCRIPTION DRUG MONITORING PROGRAM REVIEWED*: Not Applicable *COPY OF PRESCRIPTION DRUG MONITORING REPORT IN PATIENT MILDRED: Not Applicable Home Medications: Home Meds ALPRAZolam [Xanax] 0.5 mg PO BID 06/06/13 [History] Aspirin 325 mg PO DAILY 06/06/13 [History] Simvastatin [Zocor] 40 mg PO DAILY 06/06/13 [History] amLODIPine [Norvasc] 5 mg PO DAILY 06/06/13 [History] Fluticasone/Salmeterol [Advair Diskus 250-50] 1 puff INH BID 04/08/16 [History] Albuterol [Ventolin HFA] 1 puff INH Q4H PRN 08/30/17 [History] Calcium Carb & Citrate/Vit D3 [Calcium + D3 ER Tablet] 1 tab PO DAILY 08/30/17 [ History] Loratadine 10 mg PO DAILY PRN 08/30/17 [History] traMADol HCl [Tramadol HCl] 50 mg PO Q6H PRN 08/30/17 [History] Albuterol/Ipratropium [DuoNeb 3.0-0.5 MG/3 ML] 1 vial INH Q4H PRN #30 neb [Rx] Forms: ED Department Discharge Referrals: PCP,Unknown [Primary Care Provider] - - Discharge Summary/Plan Comment DC Time >30 min.: No - Patient Data Vitals - Most Recent: Last Vital Signs Temp 96.4 F 02/15/18 08:39 Pulse 113 H 02/15/18 08:39 Resp 82 H 02/15/18 08:39 BP 121/66 02/15/18 08:39 Pulse Ox 6 L 02/15/18 08:39 Weight - Most Recent: 118 lb Med Orders - Current: Current Medications Discontinued Medications Albuterol/Ipratropium (Duoneb 3.0-0.5 Mg/3 Ml) 6 ml NEB ONETIME ONE Stop: 02/15/18 08:30 Last Admin: 02/15/18 08:30 Dose: 6 ml Albuterol/Ipratropium (Duoneb 3.0-0.5 Mg/3 Ml) 3 ml NEB ONETIME ONE Stop: 02/15/18 09:02 Last Admin: 02/15/18 09:10 Dose: 3 ml Albuterol/Ipratropium (Duoneb 3.0-0.5 Mg/3 Ml) Confirm Administered Dose 3 ml .ROUTE .STK-MED ONE Stop: 02/15/18 08:53 Last Admin: 02/15/18 14:43 Dose: Not Given Albuterol/Ipratropium (Duoneb 3.0-0.5 Mg/3 Ml) 3 ml INH Q4H PRN PRN Reason: Dyspnea Lorazepam (Ativan) 1 mg IVPUSH ONETIME ONE Stop: 02/15/18 08:43 Last Admin: 02/15/18 08:45 Dose: 1 mg Methylprednisolone Sodium Succinate (Solu-Medrol) 125 mg IVPUSH NOW ONE Stop: 02/15/18 08:46 Last Admin: 02/15/18 08:45 Dose: 125 mg Morphine Sulfate (Morphine) 2 mg IVPUSH Q1H PRN PRN Reason: Pain Last Admin: 02/15/18 16:12 Dose: 2 mg Morphine Sulfate (Morphine) 2 mg IVPUSH Q2H PRN PRN Reason: Pain (severe 7-10)
== END 2018-02-15 17:25 | disposition expired ==
LOC: CC.ED 08:28 → UNDOADMIN 14:30 → CC.ED 14:30 → CC.MS 14:30 → UNDODISIN 17:25
PROVIDERS: ADMIT Physician Assistant Medical; ATTEND Family Medicine
DX: I21.4 Non-ST elevation (NSTEMI) myocardial infarction (principal); J44.1 Chronic obstructive pulmonary disease with (acute) exacerbation; Z51.5 Encounter for palliative care; Z66 Do not resuscitate; F41.9 Anxiety disorder, unspecified; I50.9 Heart failure, unspecified; F17.210 Nicotine dependence, cigarettes, uncomplicated; I11.0 Hypertensive heart disease with heart failure; E78.00 Pure hypercholesterolemia, unspecified; M19.90 Unspecified osteoarthritis, unspecified site; R09.89 Other specified symptoms and signs involving the circulatory and respiratory systems; Z88.2 Allergy status to sulfonamides; Z88.1 Allergy status to other antibiotic agents; Z79.899 Other long term (current) drug therapy; Z79.82 Long term (current) use of aspirin; Z79.51 Long term (current) use of inhaled steroids
CPT/HCPCS: 36415; 71045; 80053; 82550; 83615; 83880; 84484; 85025; 86140; 87804 ×2; 93005; 94640 ×2; 96374; 96375; 99285; J2060; J2930; 93010; J2270; J7620-GY